=== PATIENT | female | born 2000 | race Caucasian/White ===

== ENCOUNTER → 2019-11-21 08:48 | Outpatient (BNVA) | payer SELFPAY | PROVIDERS: Family Provider Family Medicine; PCP Family Medicine; Visit Provider Obstetrics & Gynecology | DX: N93.9 Abnormal uterine and vaginal bleeding, unspecified (principal) | CPT/HCPCS: 76830 ==

== ENCOUNTER → 2020-03-12 15:38 | Outpatient (BNVA) | payer MEDICAID, SELFPAY | PROVIDERS: Family Provider Family Medicine; PCP Family Medicine; Visit Provider Obstetrics & Gynecology | DX: R93.5 Abnormal findings on diagnostic imaging of other abdominal regions, including retroperitoneum (principal) | CPT/HCPCS: 76830 ==

== ENCOUNTER → 2020-04-17 10:32 | Outpatient (BNVA) | payer OTHER, SELFPAY | PROVIDERS: Family Provider Family Medicine; PCP Family Medicine; Visit Provider Nurse Practitioner Family | DX: Z11.59 Encounter for screening for other viral diseases (principal); Z20.828 Contact with and (suspected) exposure to other viral communicable diseases; J06.9 Acute upper respiratory infection, unspecified | CPT/HCPCS: 87635 ==

== ENCOUNTER → 2020-11-18 10:30 | Outpatient (BNVA) | payer MEDICAID, SELFPAY | PROVIDERS: Family Provider Family Medicine; PCP Family Medicine; Visit Provider Obstetrics & Gynecology | DX: Z12.4 Encounter for screening for malignant neoplasm of cervix (principal) | CPT/HCPCS: 88175 ==

== ENCOUNTER → 2020-11-19 13:13 | Outpatient (BNVA) | payer MEDICAID, SELFPAY | PROVIDERS: Family Provider Family Medicine; PCP Family Medicine; Visit Provider Family Medicine | DX: R30.0 Dysuria (principal); F41.1 Generalized anxiety disorder | CPT/HCPCS: 81000; 87077; 87086; 87184 ==

== ENCOUNTER → 2020-12-02 10:14 | Outpatient (BNVA) | payer MEDICAID, SELFPAY | PROVIDERS: Family Provider Family Medicine; PCP Family Medicine; Visit Provider Obstetrics & Gynecology | DX: Z32.01 Encounter for pregnancy test, result positive (principal) | CPT/HCPCS: 81025; 84702 ==

== ENCOUNTER 2020-12-05 15:30 | Outpatient (CLI) | payer MEDICAID, SELFPAY ==
--- NOTE | 2020-12-05 15:45 | USR_ITS ---
PROCEDURE INFORMATION: Exam: US Duplex Artery and Vein of the Abdominal and/or Reproductive Organs. Complete Ovaries Exam date and time: 12/05/2020 10:10 AM Age: 20 years old Clinical indication: Lmp or gestational age (in weeks): Na; Other: PT had 10-23-2020 now wants tubal lig and her pg test is +; Patient HX: See above comment; Additional info: Z34.90 - encounter for supervision of normal , u. . . TECHNIQUE: Imaging protocol: Real-time duplex ultrasound scan of the arterial and venous flow with color Doppler flow and spectral waveform analysis with image documentation. Complete duplex exam focused on the ovaries. Duplex exam was added to evaluate for torsion and other vascular conditions. COMPARISON: No relevant prior studies available. FINDINGS: Right adnexa: Normal duplex of the ovary. Normal Doppler waveforms and color flow. Arterial and venous flow are normal. No evidence of ovarian torsion. Left adnexa: Normal duplex of the ovary. Normal Doppler waveforms and color flow. Arterial and venous flow are normal. No evidence of ovarian torsion. IMPRESSION: Normal ovarian arterial and venous vascular flow. No evidence ovarian torsion. PROCEDURE INFORMATION: Exam: US First Trimester, Transabdominal and US , Transvaginal Exam date and time: 12/05/2020 10:10 AM Age: 20 years old Clinical indication: Lmp or gestational age (in weeks): Na; Other: PT had 10-23-2020 now wants tubal lig and her pg test is +; Patient HX: See above comment; Additional info: Z34.90 - encounter for supervision of normal , u. . . TECHNIQUE: Imaging protocol: Real-time transabdominal obstetrical ultrasound of the maternal pelvis and a first trimester , less than 14 weeks 0 days, with image documentation. Transvaginal imaging was used for better evaluation of the fetus, adnexa, and/or cervix. COMPARISON: No relevant prior studies available. FINDINGS: Gestation: There is a gestational sac in the uterus measuring 5.2 mm. No pole or yolk sac is identified. Embryonic/ heart rate: No pole is visualized. Extra-embryonic membranes/Placenta: Unremarkable. No subchorionic bleed. Amniotic fluid: Amniotic fluid is normal for gestational age. BIOMETRY: Gestational age (AUA): The calculated gestational age is 5 weeks 2 days. Estimated due date (AUA): The LAKSHMI is August 04, 2021. MATERNAL: Uterus: Uterus measures 8.5 x 6.3 x 4.8 cm. The endometrial stripe measures 15.2 mm. Cervix: The cervix is closed measuring 3.5 cm. Right adnexa: The right ovary measures 2.8 x 2.2 x 3.6 cm. The right ovary is appropriate in appearance. Doppler evaluation of the right ovary demonstrates good arterial and venous flow. Left adnexa: The left ovary measures 2.6 x 3.4 x 2.1 cm. Subcentimeter left ovarian cysts are noted. Doppler evaluation left ovary demonstrates good arterial and venous flow. Intraperitoneal space: No intraperitoneal free fluid. US/US OB <=14 wk fetus w transvag IMPRESSION: 1. Small gestational sac in the uterus with a calculated age of 5 weeks 2 days. No pole, cardiac activity or yolk sac is identified. This could reflect an early gestation or blighted ovum. Follow-up ultrasound/follow-up beta hCG is recommended. 2. Unremarkable ovaries and adnexa. No ovarian torsion.
== END 2020-12-05 15:31 | disposition home or self-care (01) ==
LOC: RAD 15:34
PROVIDERS: PCP Family Medicine; Visit Provider Obstetrics & Gynecology
DX: Z34.91 Encounter for supervision of normal pregnancy, unspecified, first trimester (principal); Z3A.01 Less than 8 weeks gestation of pregnancy
CPT/HCPCS: 76801; 76817

== ENCOUNTER 2020-12-09 12:49 | Outpatient (CLI) | payer MEDICAID, SELFPAY | END 2020-12-09 12:50 | disposition home or self-care (01) | PROVIDERS: PCP Family Medicine; Visit Provider Obstetrics & Gynecology | DX: Z34.90 Encounter for supervision of normal pregnancy, unspecified, unspecified trimester (principal) | CPT/HCPCS: 36415; 84702 ==

== ENCOUNTER → 2020-12-30 11:03 | Outpatient (BNVA) | payer MEDICAID, SELFPAY | PROVIDERS: PCP Family Medicine; Visit Provider Nurse Practitioner Women's Health | DX: O09.899 Supervision of other high risk pregnancies, unspecified trimester | CPT/HCPCS: 81000 ==

== ENCOUNTER → 2021-01-13 10:47 | Outpatient (BNVA) | payer MEDICAID, SELFPAY | PROVIDERS: PCP Family Medicine; Visit Provider Obstetrics & Gynecology | DX: O09.291 Supervision of pregnancy with other poor reproductive or obstetric history, first trimester (principal); O34.219 Maternal care for unspecified type scar from previous cesarean delivery; O09.899 Supervision of other high risk pregnancies, unspecified trimester; Z3A.00 Weeks of gestation of pregnancy not specified | CPT/HCPCS: 80053; 80307; 81000; 82570; 84156; 84443; 84550; 85027; 86592; 86762; 86803; 86850; 86900; 87086; 87340 ==

== ENCOUNTER → 2021-01-27 12:22 | Outpatient (BNVA) | payer MEDICAID, SELFPAY | PROVIDERS: PCP Family Medicine; Visit Provider Obstetrics & Gynecology | DX: O09.899 Supervision of other high risk pregnancies, unspecified trimester (principal); Z3A.00 Weeks of gestation of pregnancy not specified | CPT/HCPCS: 81000; 87491; 87591 ==

== ENCOUNTER → 2021-01-29 00:01 | Outpatient (BNVA) | payer MEDICAID, SELFPAY | PROVIDERS: PCP Family Medicine; Visit Provider Obstetrics & Gynecology | DX: O09.291 Supervision of pregnancy with other poor reproductive or obstetric history, first trimester (principal); Z3A.00 Weeks of gestation of pregnancy not specified | CPT/HCPCS: 84156 ==

== ENCOUNTER 2021-03-26 16:30 | Outpatient (CLI) | payer MEDICAID, SELFPAY ==
[2021-03-26 16:54] VITALS: BP 127/76; PULSE 79
[2021-03-26 17:05] VITALS: RESP 18; TEMP 36.5
--- NOTE | 2021-03-26 17:05 | USR_ITS ---
PROCEDURE INFORMATION: Exam: US , Limited Exam date and time: 03/26/2021 5:05 PM Age: 20 years old Clinical indication: Lmp or gestational age (in weeks): 23 w 6 day; Antepartum complications; Other: Cramping; ; Additional info: Amniotic fluid, cervical length TECHNIQUE: Imaging protocol: Real-time ultrasound of the maternal uterus with image documentation. Exam focused on the clinical indication. COMPARISON: US OB transvaginal [facility] 12/12/2020 8:07 AM FINDINGS: Gestation: Intrauterine gestation. heart rate: Live intrauterine gestation with heart rate of 180 bpm. Amniotic fluid index: RANDI measurements equal 15.28 cm. MATERNAL: Cervix: Cervical length measures 4.1 cm. US/US OB lmt with transvaginal IMPRESSION: 1. Borderline tachycardia. 2. RANDI measurements equals 15.28 cm. 3. Cervical length measures 4.1 cm.
[2021-03-26 17:10] VITALS: BMI 21.9
[2021-03-26 17:11] VITALS: BP 122/75; PULSE 91
[2021-03-26 17:26] VITALS: BP 127/74; PULSE 85
[2021-03-26] MEDS: acetaminophen 325 mg Tablet 650 MG PO (17:27)
[2021-03-26 17:43] LABS: Charge for UA Resulting for Rev
[2021-03-26 18:00] LABS: Protein Urine Neg (Negative); Specific Gravity, Urine 1.015 (1.005-1.030); Urine Appearance Hazy (CLEAR); Urine Color Yellow (Yellow); pH Urine 6 (5-7)
[2021-03-26 18:01] LABS: Add Urine Microscopic? YES; Bacteria Urine 1+ /hpf; Bilirubin Urine Neg (Negative); Blood Urine Neg (Negative); Glucose Urine UA Norm (Normal); Ketones Urine Negative (Negative); Leukocyte Esterase Urine 2+ (Negative); Mucus Urine 2+ /hpf; Nitrate Urine Negative (Negative); Urobilinogen Urine 4 mg/dL (Negative)
[2021-03-26 18:02] LABS: Add Urine Culture? No
== END 2021-03-26 19:16 | disposition home or self-care (01) ==
LOC: OPOB 16:38 → OBGYN 16:39
PROVIDERS: PCP Family Medicine; Visit Provider Obstetrics & Gynecology
DX: O26.899 Other specified pregnancy related conditions, unspecified trimester (principal); Z3A.00 Weeks of gestation of pregnancy not specified; R10.9 Unspecified abdominal pain
CPT/HCPCS: 76815; 76817; 81001; 81003; 99211

== ENCOUNTER → 2021-03-31 12:10 | Outpatient (BNVA) | payer MEDICAID, SELFPAY | PROVIDERS: PCP Family Medicine; Visit Provider Obstetrics & Gynecology | DX: O09.291 Supervision of pregnancy with other poor reproductive or obstetric history, first trimester (principal); O28.3 Abnormal ultrasonic finding on antenatal screening of mother; Z3A.00 Weeks of gestation of pregnancy not specified | CPT/HCPCS: 84315; 85025 ==

== ENCOUNTER → 2021-04-01 13:35 | Outpatient (BNVA) | payer MEDICAID, SELFPAY | PROVIDERS: PCP Family Medicine; Visit Provider Obstetrics & Gynecology | DX: O09.291 Supervision of pregnancy with other poor reproductive or obstetric history, first trimester (principal); Z3A.00 Weeks of gestation of pregnancy not specified | CPT/HCPCS: 85025 ==

== ENCOUNTER → 2021-05-19 13:04 | Outpatient (BNVA) | payer MEDICAID, SELFPAY | PROVIDERS: PCP Family Medicine; Visit Provider Obstetrics & Gynecology | DX: Z34.90 Encounter for supervision of normal pregnancy, unspecified, unspecified trimester (principal) | CPT/HCPCS: 82950; 84315; 85027 ==

== ENCOUNTER → 2021-05-26 09:25 | Outpatient (BNVA) | payer MEDICAID, SELFPAY | PROVIDERS: PCP Family Medicine; Visit Provider Obstetrics & Gynecology | DX: R30.0 Dysuria (principal); R35.0 Frequency of micturition | CPT/HCPCS: 81000 ==

== ENCOUNTER → 2021-06-30 14:20 | Outpatient (BNVA) | payer MEDICAID, SELFPAY | PROVIDERS: PCP Family Medicine; Visit Provider Nurse Practitioner Women's Health | DX: O09.899 Supervision of other high risk pregnancies, unspecified trimester (principal) | CPT/HCPCS: 76819; 76820; 84315 ==

== ENCOUNTER → 2021-07-07 08:23 | Outpatient (BNVA) | payer MEDICAID, SELFPAY | PROVIDERS: PCP Family Medicine; Visit Provider Obstetrics & Gynecology | DX: O09.899 Supervision of other high risk pregnancies, unspecified trimester (principal) | CPT/HCPCS: 84315; 87081 ==

== ENCOUNTER 2021-07-12 23:34 | Outpatient (CLI) | payer MEDICAID, SELFPAY ==
[2021-07-12 23:43] VITALS: BMI 23.8
[2021-07-12 23:48] VITALS: BP 141/83; PULSE 60
[2021-07-12 23:53] VITALS: PULSE 66; TEMP 36.8; O2SAT 100
[2021-07-13] VITALS (39 sets, daily range): BP systolic 111–146; BP diastolic 69–93; PULSE 49–91; RESP 16; TEMP 36.2–36.5; O2SAT 91–100
[2021-07-13] MEDS: lactated ringers 1,000 ML 999 ML IV (00:42)
[2021-07-13 00:50] LABS: Basophils # 0.1 10^3/uL (0.0-0.1); Basophils % 0.6 %; Eosinophils # 0.4 10^3/uL (0.0-0.8); Eosinophils % 3.9 %; Hematocrit 38.3 % (37.0-47.0); Hemoglobin 13.3 g/dL (11.5-15.3); Lymphocytes # 2.6 10^3/uL (0.8-4.8); Lymphocytes % 24.4 %; Mean Corpuscular HGB Conc 34.7 g/dL (30.0-36.0); Mean Corpuscular Hemoglobin 31.1 pg (28.0-34.0); Mean Corpuscular Volume 89.7 fl (81-99); Mean Platelet Volume 10.3 fL (7.4-10.4); Monocytes # 0.9 10^3/uL (0.2-0.9); Monocytes % 8.1 %; Neutrophils # 6.77 10^3/uL (1.8-7.7); Neutrophils % 62.7 %; Nucleated Red Blood Cells % 0 %; Platelet Count 203 10^3/cmm (130-400); Red Blood Count 4.27 10^6/uL (4.1-5.3); Red Cell Distribution Width 12.8 % (12.1-15.1); White Blood Count 10.8 10^3/uL (4.0-10.0)
[2021-07-13 01:10] LABS: Alanine Aminotransferase 9 U/L (0-33); Albumin Level 3.6 g/dL (3.5-5.2); Alkaline Phosphatase 180 IU/L (35-105); Aspartate Amino Transferase 16 U/L (0-32); Blood Urea Nitrogen 6 mg/dL (6-20); Carbon Dioxide 22 mmol/L (22-29); Chloride 103 mmol/L (98-107); Globulin 2.8 g/dL (1.3-4.6); Glomerular Filtration Rate 201.5 mL/min (90-130); Glucose 83 mg/dL (65-115); Osmolality Calculated 283 mOsm/kg (285-295); Sodium 138 mmol/L (136-145); Total Bilirubin 0.4 mg/dL (0.15-1.2); Total Protein 6.4 g/dL (6.6-8.7)
[2021-07-13 01:15] LABS: Anion Gap 16.9 (5-19); Potassium 3.9 mmol/L (3.5-5.1)
[2021-07-13] MEDS: dextrose 5%-lactated ringers 1,000 ML 125 ML IV (01:58)
[2021-07-13 02:07] LABS: Add Urine Culture? No; Bacteria Urine TRACE /hpf; Bilirubin Urine Neg (Negative); Blood Urine Neg (Negative); Glucose Urine UA Norm (Normal); Ketones Urine Negative (Negative); Leukocyte Esterase Urine Negative (Negative); Nitrate Urine Negative (Negative); Protein Urine Neg (Negative); RBC Urine 0-4 /hpf (0-2); Squamous Epithelial Cell Urine 0-4 /hpf (0-5); Urine Appearance Clear (CLEAR); Urine Color Yellow (Yellow); Urobilinogen Urine Norm (Negative); WBC Urine 0-4 /hpf (0-5); pH Urine 7 (5-7)
[2021-07-13 02:17] LABS: Urine Creatinine 32 mg/dL (28-217); Urine Protein Random 5 mg/dL
[2021-07-13 02:29] LABS: UPRO/UCREAT Ratio 0.16 mg/mg CR
== END 2021-07-13 04:07 | disposition home or self-care (01) ==
LOC: OPOB 23:40 → OBGYN 23:41
PROVIDERS: PCP Family Medicine; Visit Provider Obstetrics & Gynecology
DX: O16.9 Unspecified maternal hypertension, unspecified trimester (principal); Z3A.00 Weeks of gestation of pregnancy not specified; R00.0 Tachycardia, unspecified
CPT/HCPCS: 36415; 59025; 80053; 81001; 82570; 84156; 84550; 85025; 99211

== ENCOUNTER 2021-07-17 09:00 | Outpatient (CLI) | payer MEDICAID, SELFPAY ==
[2021-07-17] VITALS (10 sets, daily range): BP systolic 118–148; BP diastolic 65–90; PULSE 70–104; RESP 16–17; TEMP 36.4; BMI 23.6
[2021-07-17] MEDS: lactated ringers 1,000 ML 999 ML IV (09:55)
[2021-07-17 10:08] LABS: Basophils # 0.1 10^3/uL (0.0-0.1); Basophils % 0.5 %; Eosinophils # 0.7 10^3/uL (0.0-0.8); Eosinophils % 7.7 %; Hematocrit 37.8 % (37.0-47.0); Hemoglobin 13.1 g/dL (11.5-15.3); Lymphocytes # 2.5 10^3/uL (0.8-4.8); Lymphocytes % 26.6 %; Mean Corpuscular HGB Conc 34.7 g/dL (30.0-36.0); Mean Corpuscular Hemoglobin 30.8 pg (28.0-34.0); Mean Corpuscular Volume 88.9 fl (81-99); Mean Platelet Volume 10.2 fL (7.4-10.4); Monocytes # 0.8 10^3/uL (0.2-0.9); Neutrophils % 56.9 %; Nucleated Red Blood Cells % 0 %; Platelet Count 209 10^3/cmm (130-400); Red Blood Count 4.25 10^6/uL (4.1-5.3); Red Cell Distribution Width 12.6 % (12.1-15.1); White Blood Count 9.3 10^3/uL (4.0-10.0)
[2021-07-17] MEDS: terbutaline 1 mg/mL INJ 0.25 MG SUBCUT (10:33)
--- NOTE | 2021-07-17 11:14 | P.HPUD_ITS ---
Surgery/Procedure H&P Update DATE OF PROCEDURE: July 17, 2021 DATE H&P PERFORMED: 07/15/21 H&P UPDATE INFORMATION: I have reviewed H&P completed within last 30 days, I have examined patient prior to procedure, No changes to prior documentation and H&P is in [facility] EMR on date indicated PREOP DIAGNOSIS: Cephalic Eversion
--- NOTE | 2021-07-17 11:15 | PM.ACPR ---
Procedure/Consent Procedure Narrative: OPERATIVE REPORT Date of procedure: 07/17/2021 Date of dictation: 07/17/2021 Preoperative diagnosis: 20-year-old 4 para 1-1-1-2 at 37 weeks and 1 day, breech presentation, previous delivery x1, history of IUGR Postoperative diagnosis/findings: Same Procedure done: Attempted external cephalic version Complications: None PROCEDURE: After informed consent was obtained patient was placed supine on the bed. tracing was reviewed and was category 1 with a baseline of 145, moderate variability, accelerations, no decelerations. Bedside ultrasound showed that fetus was in breech presentation with head in the maternal right upper quadrant and breech in the suprapubic area. Patient had been given terbutaline and tolerated this well. After 10 minutes had passed version was started. Holding the head in the breech attempt was made to try to move baby in the clockwise direction however very minimal movement was noted. 2 attempts on this was tried without success. Then attempt was made to move the baby in the counterclockwise direction again grasping the head in the breech. Again minimal to no movement was noted. Throughout the procedure ultrasound monitored baby's heart rate which continue to remain normal rhythm. After about 5 minutes of trying and having absolutely no movement of baby I discussed with patient that it is unlikely to change likely secondary to baby being in emmy breech presentation. She understands this. -We will monitor patient for 2 hours to ensure the tracing remains category 1. Patient can be discharged at the end of the time as long as tracings been category 1 and if she has any questions or concerns after discharge she will contact us. -We will plan to schedule for repeat delivery on 07/30/2021--Message sent to Jul -Follow-up on 07/20/2021 for routine visit FOLLOW UP: Follow-up as scheduled on 07/20/2021 for visit and BPP Follow-up in OB for any concerns of decreased movement abnormal discharge contractions or vaginal bleeding. Pelvic rest This documentation was created by [employer] checker dump grounds software (known for inherent checker dump grounds error). Every effort was made to assure accuracy of checker dump grounds. Any obvious errors or omissions should be clarified with the author of the document.
== END 2021-07-17 13:10 | disposition home or self-care (01) ==
LOC: OPOB 09:11 → OBGYN 09:12
PROVIDERS: PCP Family Medicine; Visit Provider Obstetrics & Gynecology
DX: O32.1XX0 Maternal care for breech presentation, not applicable or unspecified (principal); Z3A.37 37 weeks gestation of pregnancy
CPT/HCPCS: 36415; 59025; 85025; 86900; 96372; 99211; J3105

== ENCOUNTER → 2021-07-20 08:48 | Outpatient (BNVA) | payer MEDICAID, SELFPAY | PROVIDERS: PCP Family Medicine; Visit Provider Obstetrics & Gynecology | DX: O09.899 Supervision of other high risk pregnancies, unspecified trimester (principal) | CPT/HCPCS: 82570; 84156; 84315 ==

== ENCOUNTER 2021-07-30 05:06 | Inpatient (IN) | payer MEDICAID, SELFPAY ==
--- NOTE | 2021-07-29 13:13 | ANES.PREANE2 ---
Pre-Anesthetic Assessment Pre-Anesthetic Assessment: Height/Weight: Height 1.68 m Preop Diagnosis: Cephalic Eversion Proposed Procedure: Operation Date: 07/30/21 07:00 Proposed Procedures p Section Repeat With Tubal(Not Applicable) - Pierce Dia MD Was Beta René taken within 24 hours: N/A Was Clonidine taken within 24 hours: N/A Social: Social History: No alcohol and No tobacco Exam: Pre-Anes Outpt Exam: alert, oriented x 3, clear to auscultation bilaterally and regular rate & rhythm Airway: Submandibular: WNL Cervical ROM: WNL MP: 2 Dentition: Full History/ROS: No significant history except as noted Neuropsych: Neuropsych: Anxiety and Depression Anesthetic Plan: ASA status: 2 Anesthesia: Regional (specify below) (SAB) Other: Repeat C/S Risk of > 500 ml blood loss (7ml/kg in children): No PFSH Anesthesia PFSH: Medical History Anxiety and depression Present prepregnancy-diagnosed in 2019 and started on medication. No pertinent past medical history Denies diabetes, asthma, hypertension, DVT/PE. PCP: Dr. Lacey Surgical History S/P section 09/20/2018----(Violeta Nicole, primary low transverse delivery and for nonreassuring heart status at 27 weeks and [address] Hope. Operative report reviewed and low transverse delivery with double layer closure. Operative report has been scanned Family History Grandfather Diabetes Maternal Hypertension maternal Grandmother Hypertension maternal Family/Other Thyroid condition paternal aunt Breast cancer maternal and paternal great aunt Denies family history of Cervical cancer Colon cancer Ovarian cancer DVT (deep venous thrombosis) Heart disease Hyperlipidemia Bleeding disorder Pulmonary embolism Uterine cancer Stroke Data Anesthesia Cardiac Studies: No Data to Display
[2021-07-30] VITALS (32 sets, daily range): BP systolic 119–156; BP diastolic 69–98; PULSE 50–90; RESP 16–20; TEMP 36.1–36.9; O2SAT 97–100; BMI 23.8
[2021-07-30 05:47] LABS: Basophils # 0.1 10^3/uL (0.0-0.1); Basophils % 0.6 %; Eosinophils # 0.4 10^3/uL (0.0-0.8); Eosinophils % 3.2 %; Hematocrit 39.7 % (37.0-47.0); Lymphocytes # 2.2 10^3/uL (0.8-4.8); Lymphocytes % 18.6 %; Mean Corpuscular HGB Conc 35.3 g/dL (30.0-36.0); Mean Corpuscular Hemoglobin 31.2 pg (28.0-34.0); Mean Corpuscular Volume 88.4 fl (81-99); Mean Platelet Volume 10.5 fL (7.4-10.4); Monocytes # 0.9 10^3/uL (0.2-0.9); Monocytes % 7.9 %; Neutrophils # 8.09 10^3/uL (1.8-7.7); Neutrophils % 69.4 %; Nucleated Red Blood Cells % 0 %; Platelet Count 225 10^3/cmm (130-400); Red Blood Count 4.49 10^6/uL (4.1-5.3); Red Cell Distribution Width 12.7 % (12.1-15.1); White Blood Count 11.7 10^3/uL (4.0-10.0)
[2021-07-30] MEDS: lactated ringers 1,000 ML 999 ML IV (05:52)
[2021-07-30] MEDS: citric acid-sodium citrate 30 mL UDC PO (06:50)
[2021-07-30] MEDS: metoclopramide 5 mg/mL SDV 2 mL 10 MG IVP (06:51)
[2021-07-30] MEDS: famotidine 20 mg/2 mL INJ IVP (06:51)
--- NOTE | 2021-07-30 06:56 | P.HPUD_ITS ---
Surgery/Procedure H&P Update DATE OF PROCEDURE: July 30, 2021 DATE H&P PERFORMED: 07/28/21 H&P UPDATE INFORMATION: I have reviewed H&P completed within last 30 days, I have examined patient prior to procedure, No changes to prior documentation and H&P is in [facility] EMR on date indicated PREOP DIAGNOSIS: adn tubal PLANNED PROCEDURE: Operation Date: 07/30/21 07:00 Proposed Procedures p Section Repeat With Tubal(Not Applicable) - Pierce Dia MD
--- NOTE | 2021-07-30 09:04 | P.OP_ITS ---
Operative Report Date of procedure: July 30, 2021 OPERATIVE REPORT Date of surgery: 07/30/2021 Date of dictation: 07/30/2021 Preoperative diagnosis: 20-year-old 4 para 1-1-1-2 at 39 weeks and 0 days gestation, previous delivery x1-desires repeat , multiparity desiring permanent sterilization, breech presentation, history of preeclampsia Postoperative diagnosis/findings: Same, compound breech presentation, baby boy daxton weighing 6 pounds 14 ounces Apgars of 6 and 8, clear fluid, normal tubes and ovaries bilaterally. Minimal bladder additions noted. No omental lesions. Procedure done: Repeat low transverse delivery via Pfannenstiel incision, total bilateral salpingectomy for sterilization Specimens removed/disposition of specimens: Right and left fallopian tubes sent to pathology with the right tube tagged Surgeon: Dr. Pierce Gusman medication assistant: Charlotte Chacon Anesthesia: Spinal anesthesia Estimated blood loss: 800 ml Intravenous fluids: 2300 mL of LR Urine output: 100 mL of clear urine at the end of procedure Medications: As per anesthesia records Complications: None, both baby and mother were left to recover in a stable condition. PROCEDURE: After consent was obtained, patient was taken to the operating room where spinal anesthesia was placed without difficulty. She was placed supine on the table with a left lateral wedge. Cleaning catheter and SCDs were placed. The abdomen was shaved and then prepped with duo prep. She was draped in a sterile fashion. After checking adequacy of anesthesia, a Pfannenstiel incision was made 2 cm above the pubic symphysis over her old incision. The incision was carried down to the fascia using the Bovie. The fascia was nicked in the midline and the fascial incision was extended laterally using curved Mayos. The inferior aspect of the fascia was grasped with kamlesh clamps and dissected off from the underlying rectus muscle. This was repeated again superiorly without any difficulty. The rectus muscle was sharply. A anne was made in the peritoneum and the peritoneal incision was carried inferiorly taking care to p roceed in layers so as to avoid the bladder. The peritoneal incision was extended superiorly as well. No adhesions were noted from the uterus to the anterior abdominal wall. The uterus was noted to be rotated to the left. The bladder peritoneum was grasped with smooth forceps a bladder flap was created. the bladder blade was replaced thus protecting the bladder. A LOW TRANSVERSE UTERINE INCISION was made with a scalpel till the amniotic membrane was reached. The uterine incision was then extended laterally using bandage scissors. Amniotomy was done and clear amniotic fluid was drained. 1 foot was delivered and the at the foot was noted to be in emmy extended position. The breech of the baby was brought up to the level of the incision and then the second lead was delivered. The body of the baby was wrapped in a towel and the body was delivered up to the level of the scapula after which the arms were delivered anteriorly over the chest without difficulty. The head was then delivered without difficulty. And the nose and mouth were suctioned, the umbilical cord was clamped and cut and the baby was handed off to the waiting smelter liner, Dr. Reis. The placenta was delivered spontaneously with fundal massage. It was noted to be intact and was discarded. The interior of the uterus was cleaned of all clot and debris and was noted to be nilda well. The uterus was exteriorized. The uterine incision was closed with 0 Vicryl in a running interlocking manner. Good hemostasis and reapproximation was obtained. A second imbricating layer was made with [id number] sutures. The uterus was noted to be boggy at this time and uterine massage was done until the uterine tone improved. The abdomen was irrigated and the gutters were cleaned of clot and debris. Normal tubes and ovaries were noted bilaterally. Tubal ligation was performed at this time. The fallopian tube on the right side and in the left side were first identified grasped with Berta clamps. Using the Voyant device the mesosalpinx under the fallopian tube was identified clamped cauterized and then cut in a sequential fashion until the entire fallopian tube was removed. This was done first on the right side and then the left side without any difficulty. Areas of vasculature were doubly cauterized. The cornual end was cauterized as well. Good hemostasis and reapproximation of tissue was noted. The fallopian tubes were sent to pathology with the right tube tagged. The uterus was placed back into the abdomen and uterine incision was noted to be hemostatic. The peritoneum was closed with a 2-0 plain in a continuous stitch. The rectus muscle was reapproximated with 2-0 plain suture in a mattress stitch. Good hemostasis was noted in the rectus muscle layer. The fascia was inspected for any defects and none were found and the fascia was closed with 0 Vicryl in continuous stitch. The subcutaneous plane was then irrigated and hemostasis was obtained using the Bovie. The subcutaneous plane was then reapproximated using 2-0 plain suture in a continuous manner. The skin was then closed with 4-0 Monocryl in a subcuticular fashion. Good reapproximation and hemostasis was noted. Steri-Strips were applied. The incision was dressed with Telfa ,ABD and paper tape. The fundus was noted to be firm at the end of the procedure and excess blood was expressed from the vagina. The patient was left to recover in a stable condition. This documentation was created by [employer] biomedical service engineer software (known for inherent biomedical service engineer error). Every effort was made to assure accuracy of tr anscription. Any obvious errors or omissions should be clarified with the author of the document. Pre-op Diagnosis: adn tubal
[2021-07-30] MEDS: dextrose 5%-lactated ringers 1,000 ML 125 ML IV (15:57)
[2021-07-30] MEDS: ibuprofen 800 mg tablet PO ×2 (15:57→20:58)
--- NOTE | 2021-07-30 16:17 | ANE.PACU2 ---
Inpatient post-anesthesia follow up: Airway intact: Yes Vital signs: Temperature 97 F Pulse Rate 74 Respiratory Rate 16 Blood Pressure 134/98 Pulse Oximetry 100 Oxygen Delivery Me thod Room Air Oxygen Flow Rate Fraction of Inspir ed Oxygen Hydration adequate: Yes Nausea and vomiting: No Pain level: 2 Mental status: Baseline
[2021-07-30 21:20] LABS: Hematocrit 31.4 % (37.0-47.0); Hemoglobin 11.3 g/dL (11.5-15.3); Mean Corpuscular Hemoglobin 31.5 pg (28.0-34.0); Mean Corpuscular Volume 87.5 fl (81-99); Mean Platelet Volume 10.5 fL (7.4-10.4); Platelet Count 235 10^3/cmm (130-400); Red Blood Count 3.59 10^6/uL (4.1-5.3); Red Cell Distribution Width 12.5 % (12.1-15.1); White Blood Count 15.5 10^3/uL (4.0-10.0)
[2021-07-31] MEDS: HYDROcodone-acetaminophen 5-325 mg Tablet PO (03:21)
[2021-07-31 04:00] VITALS: BP 130/78; PULSE 70; RESP 16; TEMP 36.7; O2SAT 99
--- NOTE | 2021-07-31 06:51 | P.DS_ITS ---
Discharge Providers BOARDING HOUSE MANAGER Date of Admission: 07/30/21 05:06 Date of Discharge: 08/03/21 Attending Provider at Admission: Pierce Dia MD Attending Provider at Discharge: Pierce Dia MD Primary Care Provider: Date of surgery: 07/30/2021 Preoperative diagnosis: 20-year-old 4 para 1-1-1-2 at 39 weeks and 0 days gestation, previous delivery x1-desires repeat , multiparity desiring permanent sterilization, breech presentation, history of preeclampsia Postoperative diagnosis/findings: Same, compound breech presentation, baby boy daxton weighing 6 pounds 14 ounces Apgars of 6 and 8, clear fluid, normal tubes and ovaries bilaterally. Minimal bladder additions noted. No omental lesions. Procedure done: Repeat low transverse delivery via Pfannenstiel incision, total bilateral salpingectomy for sterilization Specimens removed/disposition of specimens: Right and left fallopian tubes sent to pathology with the right tube tagged Surgeon: Dr. Pierce Gusman [facility]RSE: She underwent an uncomplicated repeat delivery with bilateral salpingectomy on 07/30/2021-please see operative report for detail.. She did well on day 0 and was ambulating well, tolerating regular diet, voiding freely, passing flatus. She was breast-feeding without difficulty and bonding well with her son. Circumcision was performed on him on day of life 1 as per her request without any problems.. Pain was well-controlled with by mouth pain medication. She denied nausea, vomiting, fever, chills, shortness of breath, leg pain. She had moderate vaginal bleeding. On day # 1 she continued to do well with stable vital signs and stable hemoglobin at 11.3. She was discharged home on day 1 in a stable condition, as she desired early discharge. Warning signs for endometritis, mastitis, wound infection, DVT/PE were reviewed with her. Post delivery activity restrictions were also reviewed with her at all her questions were answered to her satisfaction. Has had sterilization for contraception. EXAM AT DISCHARGE: Gen.: No acute distress Heart: S1-S2 heard, regular rate and rhythm Lungs: Clear to auscultation bilaterally Abdomen: Soft, fundus firm below umbilicus, tenderness around incision. Incision: Clean dry and intact with Steri-Strips. Steri-Strips stained with old blood. Legs: No calf tenderness, trace bilateral pitting pedal edema. CONDITION AT DISCHARGE: Stable This documentation was created by [employer] agricultural chemicals inspector software (known for inherent agricultural chemicals inspector error). Every effort was made to assure accuracy of agricultural chemicals inspector. Any obvious errors or omissions should be clarified with the author of the document. Reason for Visit Reason for Visit: Information Peripartum Data: Infant Delivery Method: Physical Exam Urinary Catheter Management^: Cleaning: Cath Placed During This Visit: yes, but has since been removed by the nurse Reason for Continuing Indwelling Catheter: Decision to DC Catheter Urinary Catheter Date of Insertion: 07/30/21 Urinary Catheter Time of Insertion: 07:10 Date Urinary Catheter Removed: 07/30/21 Time Urinary Catheter Discontinued: 19:00 History History History 4 Term 2 Miscarriages/Ectopic 1 1 Living Children 3 Other History: 4 para 1112; x 1; CD x 2 VIP x 1 1---> 02/29/2016--vaginal delivery over intact perineum, baby girl(Meredith) weighing 5 pounds 3-1/2 ounces. Induction of labor at 38 weeks and 5 days for preeclampsia. She received magnesium during labor and . She was placed on labetalol for about a week after delivery and then it was stopped and she did well. No / complications. 2----> 09/20/2018, female,(Candy), 1 lb, 10.5 ozs, 27 3/7 wks, low transverse cesarian section, delivered by Dr Ortega Hope at [facility] in [place], [place]. was complicated by severe pree-eclampsia and poor growth. Per patient she was told by the DrTonio that she should never get again. 3--->10/28/20, VIP at 4 weeks-With medication-no complications 4---> [id number] scheduled repeat delivery at [address] Gusman at [facility], baby boy Daxton weighing 6 pounds 14 ounces. Bilateral total salpingectomy for sterilization performed at the same time, surgery done for breech presentation. Discharge Data Data Completed and Pending: Pending at discharge Category Date Time Status Pathology: Surgic al [PTH] Routine Pth 07/30/21 08:25 Received Labs from last 24 hours 07/30/21 21:12 WBC 15.5 H RBC 3.59 L Hgb 11.3 L Hct 31.4 L MCV 87.5 MCH 31.5 MCHC 36.0 RDW 12.5 Plt Count 235 MPV 10.5 H Vitals: Last Vital Signs Temp 98.4 F 07/30/21 20:11 Pulse 65 07/30/21 21:13 Resp 16 07/30/21 21:13 BP 124/84 07/30/21 21:13 Pulse Ox 97 07/30/21 21:13 Discharge Plan Discharge Patient Disposition: Home Condition: Stable Prescriptions: New ibuprofen 800 mg tablet 800 mg PO Q8H Qty: 30 RF: 0 hydrocodone-acetaminophen 5-325 mg tablet 1 tab PO Q6H Qty: 25 RF: 0 docusate sodium 100 mg Capsule 100 mg PO BID PRN (Reason: constipation) Qty: 30 RF: 0 Continued prenat.vits,alvarez,[id number] Tablet 1 tab PO DAILY RF: 0 citalopram 20 mg tablet 20 mg PO DAILY Qty: 30 RF: 1 Discontinued aspirin 81 mg tablet,delayed release (DR/EC) 162 mg PO DAILY Qty: 120 RF: 2 Discharge Orders: Discharge Order (Routine); Ordered 07/31/21 Ordered By: Pierce Dia Referrals: Pierce Dia MD [Physician] - 08/17/21 9:45 am (Your 2 week incision check is scheduled for 08/17/21 @9:45. Your 6 week post- appointment is scheduled for 09/09/21 @2:30. ) Patient Instructions: Depression (DC), Bleeding (DC), Preeclampsia and Eclampsia After Delivery (GEN), OB WHC, OB Discharge Report, OB Food/Drug Interaction Guide, Opioid Safety, OB Home Care Activity Restrictions/Additional Instructions: -Pelvic rest for 6 weeks, no heavy lifting for 6 weeks 2-week and 6-week incision check with Dr. Gusman. Discharge Attestations BOARDING HOUSE MANAGER Time Spent in Discharge Care*: greater than 30 min Coding Level of Care Code Acute Flexible Nanny for g Roxy
[2021-07-31] MEDS: docusate sodium 100 mg Capsule PO ×2 (09:39→17:03)
[2021-07-31] MEDS: prenatal vitamin Capsule 1 CAP PO (09:39)
[2021-07-31] MEDS: ibuprofen 800 mg tablet PO ×2 (09:39→17:02)
[2021-07-31 09:45] VITALS: BP 130/73; PULSE 115; RESP 18; TEMP 37.1; O2SAT 98
[2021-07-31 18:00] VITALS: BP 120/75; PULSE 90; RESP 18; TEMP 36.7
== END 2021-07-31 18:10 | disposition home or self-care (01) | DRG 785 ==
PROVIDERS: Admitting Provider Obstetrics & Gynecology; PCP Family Medicine; Visit Provider Obstetrics & Gynecology
PROC: 10D00Z1 Extraction of Products of Conception, Low, Open Approach (ICD-10-PCS; CPT 59514; principal; 2021-07-30 07:00)
DX: O34.211 Maternal care for low transverse scar from previous cesarean delivery (principal); Z3A.39 39 weeks gestation of pregnancy; Z37.0 Single live birth; O32.1XX0 Maternal care for breech presentation, not applicable or unspecified; O99.344 Other mental disorders complicating childbirth; F32.9 Major depressive disorder, single episode, unspecified; F41.9 Anxiety disorder, unspecified; Z30.2 Encounter for sterilization; Z87.59 Personal history of other complications of pregnancy, childbirth and the puerperium
CPT/HCPCS: 36415; 51702; 58611; 59025; 59409; 85025; 85027; 88302; 96374; J0690; J1100; J2274; J2370; J2765; J3010; J3490; J7030

== ENCOUNTER → 2021-08-17 00:01 | Outpatient (BNVA) | payer MEDICAID, SELFPAY | PROVIDERS: PCP Family Medicine; Visit Provider Obstetrics & Gynecology | DX: Z30.2 Encounter for sterilization (principal); R30.0 Dysuria | CPT/HCPCS: 81003; 87086 ==

== ENCOUNTER → 2021-09-09 15:46 | Outpatient (BNVA) | payer MEDICAID, SELFPAY | PROVIDERS: PCP Family Medicine; Visit Provider Obstetrics & Gynecology | DX: Z12.4 Encounter for screening for malignant neoplasm of cervix (principal) | CPT/HCPCS: 88175 ==

== ENCOUNTER → 2022-11-16 15:30 | Outpatient (BNVA) | payer MEDICAID, SELFPAY | PROVIDERS: PCP Family Medicine; Visit Provider Obstetrics & Gynecology | DX: R87.619 Unspecified abnormal cytological findings in specimens from cervix uteri (principal) | CPT/HCPCS: 88175 ==

== ENCOUNTER 2023-02-24 12:41 | Outpatient (CLI) | payer MEDICAID, SELFPAY ==
--- NOTE | 2023-02-24 12:45 | US_ITS ---
WS: [id number] ULTRASOUND BREAST RIGHT TECHNIQUE: Ultrasound right breast focused area of concern. CLINICAL INFORMATION: N63.0 - Unspecified lump in unspecified breast COMPARISON: None. FINDINGS: Ultrasound right breast 2 o'clock position 5 cm from the nipple. No suspicious underlying lesions. No cystic or solid abnormalities. No lesions to target for biopsy. Normal underlying breast parenchyma. Recommend annual screening mammography age 40 IMPRESSION: Recommend annual screening mammography age 40
== END 2023-02-24 12:42 | disposition home or self-care (01) ==
LOC: RAD 12:44
PROVIDERS: PCP Family Medicine; Visit Provider Obstetrics & Gynecology
DX: N63.12 Unspecified lump in the right breast, upper inner quadrant (principal)
CPT/HCPCS: 76642

== ENCOUNTER → 2023-06-30 08:18 | Outpatient (BNVA) | payer MEDICAID, SELFPAY | PROVIDERS: PCP Family Medicine; Visit Provider Nurse Practitioner Family | DX: J02.9 Acute pharyngitis, unspecified (principal); J06.9 Acute upper respiratory infection, unspecified | CPT/HCPCS: 87880 ==

== ENCOUNTER → 2023-08-30 08:04 | Outpatient (BNVA) | payer MEDICAID, SELFPAY | PROVIDERS: PCP Family Medicine; Visit Provider Nurse Practitioner Family | DX: R39.9 Unspecified symptoms and signs involving the genitourinary system (principal) | CPT/HCPCS: 81000 ==

== ENCOUNTER → 2024-04-17 12:41 | Outpatient (BNVA) | payer MEDICAID, SELFPAY | PROVIDERS: PCP Family Medicine; Visit Provider Nurse Practitioner | DX: R39.9 Unspecified symptoms and signs involving the genitourinary system (principal) | CPT/HCPCS: 81000; 87086 ==